=== PATIENT | male | born 1980 | race Caucasian/White ===

== ENCOUNTER 2024-06-15 13:07 | Emergency (ER) | payer MEDICAID ==
[~2024-06-15] VITALS: Ht 172.7 cm; Wt 86.2 kg
[2024-06-15 13:25] VITALS: O2SAT 96
[2024-06-15 13:26] VITALS: TEMP 98.2; O2SAT 98
[2024-06-15 14:38] LABS: CHLORIDE 108 mEq/L (98-107); SODIUM 138 mEq/L (136-145)
[2024-06-15 14:39] LABS: CALCIUM 9.5 mg/dL (8.7-10.4); CARBON DIOXIDE 25 mEq/L (21-32)
[2024-06-15 14:44] LABS: BASOPHILS % 0.6 % (0.0-2.0); CREATININE 0.7 mg/dL (0.6-1.3); EOSINOPHILS % 2.1 % (0.0-5.0); GLUCOSE 102 mg/dL (70-105); HEMATOCRIT. 41.7 % (42.0-52.0); HEMOGLOBIN. 13.8 g/dL (14.0-18.0); LYMPHOCYTES % 24.6 % (20.0-50.0); MEAN CORPUSCULAR HEMOGLOBIN 29.7 pg (28.0-32.0); MEAN CORPUSCULAR HGB CONC 33.2 g/dL (31.0-37.0); MEAN CORPUSCULAR VOLUME 89.5 fL (80.0-94.0); MEAN PLATELET VOLUME 7.3 fl (7.4-10.4); NEUTROPHILS % 66.7 % (40.0-76.0); PLATELET 321 x1000/uL (130-400); RED BLOOD CELL COUNT 4.66 mill/uL (4.7-6.1); RED CELL DISTRIBUTION WIDTH 13.5 % (11.6-14.6); UREA NITROGEN BLOOD 10 mg/dL (9-23); WHITE BLOOD COUNT 6.9 x1000/uL (4.5-11.0)
[2024-06-15 14:46] LABS: ALANINE AMINOTRANSFERASE 11 IU/L (10-49); ALBUMIN 4.6 g/dL (3.2-4.8); ASPARTATE AMINOTRANSFERASE 20 IU/L (<34); BILIRUBIN DIRECT 0.1 mg/dL (<=3.0); BILIRUBIN TOTAL 0.5 mg/dL (0.1-1.0)
[2024-06-15 14:47] LABS: PROTEIN TOTAL 7.5 g/dL (6.0-8.3)
[2024-06-15] MEDS ORDERED: HYDROCODONE/ACETAMINOPHEN 10/325MG TABLET PO ONE (16:45)
[2024-06-15 17:45] LABS: CLARITY URINE CLEAR (CLEAR); COLOR URINE YELLOW (YELLOW); GLUCOSE URINE NEGATIVE (NEGATIVE); KETONES URINE TRACE (NEGATIVE); LEUKOCYTE ESTERASE URINE 1+ (NEGATIVE); NITRITE URINE NEGATIVE (NEGATIVE); OCCULT BLOOD URINE NEGATIVE (NEGATIVE); PROTEIN URINE NEGATIVE (NEGATIVE); SPECIFIC GRAVITY URINE 1.025 (1.005-1.030); UROBILINOGEN URINE 0.2 E.U./dL (0.2-1.0)
[2024-06-15 18:02] VITALS: BP 148/100; PULSE 66; RESP 16
[2024-06-15] MEDS: HYDROCODONE/ACETAMINOPHEN 10/325MG TABLET PO NR (18:02)
[2024-06-15] MEDS: AMOXICILLIN/POTASSIUM CLAVULANATE 875/125MG TAB PO ONE (18:02)
[2024-06-15 18:05] LABS: BACTERIA URINE FEW; CALCIUM OXALATE CRYSTALS URINE 1+ /lpf; RBC URINE 0-2 /hpf (0-2); SQUAMOUS EPITHELIAL CELL URINE 2+ /lpf (RARE/1+)
[2024-06-15 18:06] LABS: MUCUS URINE 1+ /lpf (NONE/TRACE)
[2024-06-15] MEDS ORDERED: CEFTRIAXONE 1GM/50ML 50 ML IV ONE (18:30)
[2024-06-15] MEDS: MORPHINE SULFATE 4 MG/ML INJ (FOR IV/IM USE) IV ONE ×2 (19:33→22:46)
[2024-06-15] MEDS: METRONIDAZOLE 500 MG PREMIX 100 ML IV ONE (19:34)
[2024-06-15] MEDS: KETOROLAC 30MG/ML VIAL IV ONE (19:34)
== END 2024-06-15 23:13 | disposition home or self-care (01) ==
LOC: ER 13:18
DX: K57.92 Diverticulitis of intestine, part unspecified, without perforation or abscess without bleeding (principal); N39.0 Urinary tract infection, site not specified; F41.9 Anxiety disorder, unspecified; F32.A Depression, unspecified; I10 Essential (primary) hypertension; Z90.49 Acquired absence of other specified parts of digestive tract; Z98.890 Other specified postprocedural states
CPT/HCPCS: 80076; 80048; 81003; 85025; 86850; 86900; 86901; 87086; 36415; 74176; 93005; 96365; 96375; 96376; 99291; J1885; J3490; J2270; Z7610